=== PATIENT | male | born 1955 | race Caucasian/White ===

== ENCOUNTER 2019-01-30 22:36 | Inpatient (IN) | payer OTHER ==
[2019-01-30] MEDS ORDERED: SOD CHLORIDE 0.9% 1,000 ML IV (23:57)
[2019-01-31] MEDS ORDERED: ACETAMINOPHEN 650 MG SUPP PR
[2019-01-31] MEDS ORDERED: NACL 0.9% 3 ML SYG IV
[2019-01-31] MEDS ORDERED: ONDANSETRON 4 MG INJ IV
[2019-01-31] MEDS ORDERED: POTASSIUM CHLORIDE 40 MEQ in SOD CHLORIDE 0.9% 1,000 ML IV (01:30)
[2019-01-31] MEDS: LORAZEPAM 2 MG INJ IV ×4 (01:50→19:30)
[2019-01-31] MEDS: MULTIVITAMINS 10 ML, THIAMINE 100 MG, FOLIC ACID 1 MG in SOD CHLORIDE 0.9% 1,000 ML IVPB (01:51)
[2019-01-31] MEDS ORDERED: GLUCOSE GEL 15 GRAM TUBE BUCCAL (02:00)
[2019-01-31] MEDS ORDERED: DEXTROSE 50% 50 ML SYRINGE IV (02:00)
[2019-01-31] MEDS ORDERED: GLUCOSE GEL 15 GRAM TUBE PO ×2 (02:00)
[2019-01-31] MEDS ORDERED: GLUCAGON 1 MG INJ IM (02:00)
[2019-01-31] MEDS ORDERED: THIAMINE 200 MG INJ IV (02:00)
[2019-01-31] MEDS: ACCU-CHEK XX (02:49)
[2019-01-31] MEDS: THIAMINE 500 MG in SOD CHLORIDE 0.9% 100 ML IV ×2 (03:18→12:50)
[2019-01-31] MEDS: POTASSIUM CHLORIDE 100 ML IVPB ×2 (03:19→05:31)
[2019-01-31] MEDS: POTASSIUM CHLORIDE 40 MEQ in SOD CHLORIDE 0.9% 1,000 ML IV (03:19)
[2019-01-31] MEDS: INSULIN ASPART [NOVOLOG] 3 ML PEN SC ×5 (05:00→21:00)
[2019-01-31] MEDS ORDERED: VANCOMYCIN IV PER PHARMACY XX (05:30)
[2019-01-31] MEDS: PIPER-TAZO 3.375 GM IV (PMX) 100 ML IVPB ×4 (05:31→23:23)
[2019-01-31] MEDS: PANTOPRAZOLE 40 MG INJ IV (05:32)
[2019-01-31] MEDS: VANCOMYCIN 1 GM 250 ML IVPB (08:44)
[2019-01-31] MEDS: DILTIAZEM 25 MG INJ IV ×3 (15:28→22:22)
[2019-01-31] MEDS ORDERED: DILTIAZEM 25 MG INJ IV (16:30)
[2019-01-31] MEDS: CLONIDINE 0.2 MG/24 HR PATCH TRANSDERM (18:27)
[2019-01-31] MEDS: LACTATED RINGER'S 1,000 ML IV (19:20)
[2019-01-31] MEDS: ALBUTEROL/IPRATROPIUM (NEB) 3 ML AMP HHN (19:30)
[2019-01-31] MEDS: SOD CHLORIDE 0.9% 500 ML IV (21:02)
[2019-01-31] MEDS: VANCOMYCIN 750 MG (PMX) 250 ML IVPB (21:18)
[2019-01-31] MEDS ORDERED: ALBUTEROL/IPRATROPIUM (NEB) 3 ML AMP HHN (22:00)
[2019-01-31] MEDS: PROPOFOL 100 ML IV (22:23)
[2019-02-01] MEDS: THIAMINE 500 MG in SOD CHLORIDE 0.9% 100 ML IV (00:34)
[2019-02-01] MEDS: INSULIN ASPART [NOVOLOG] 3 ML PEN SC ×6 (01:00→21:00)
[2019-02-01] MEDS: PIPER-TAZO 3.375 GM IV (PMX) 100 ML IVPB ×3 (05:24→17:34)
[2019-02-01] MEDS: PANTOPRAZOLE 40 MG INJ IV (05:24)
[2019-02-01] MEDS: IPRATROPIUM (HFA) 12.9 GM INHALER INH ×3 (08:13→19:20)
[2019-02-01] MEDS: ALBUTEROL HFA 8 GM INHALER INH ×3 (08:14→19:20)
[2019-02-01] MEDS: VANCOMYCIN 750 MG (PMX) 250 ML IVPB ×2 (08:38→21:48)
[2019-02-01] MEDS ORDERED: ALBUTEROL HFA 8 GM INHALER INH (09:00)
[2019-02-01] MEDS ORDERED: IPRATROPIUM (HFA) 12.9 GM INHALER INH (09:00)
[2019-02-01] MEDS: PROPOFOL 100 ML IV ×2 (09:30→12:27)
[2019-02-01] MEDS: LORAZEPAM 2 MG INJ IV ×2 (12:17→14:07)
[2019-02-01] MEDS: morphine 2 MG INJ IV (12:49)
[2019-02-01] MEDS: SOD FERRIC GLUC COMPLX 125 MG in SOD CHLORIDE 0.9% 100 ML IVPB (13:13)
[2019-02-01] MEDS: SOD CHLORIDE 0.9% 500 ML IV (14:07)
[2019-02-01] MEDS: ACETAMINOPHEN 650MG/20.3ML CUP GTB (14:08)
[2019-02-01] MEDS: ENOXAPARIN 60 MG/0.6 ML SYG SC (15:20)
[2019-02-01] MEDS ORDERED: ASPIRIN 81 MG TAB GTB (20:00)
[2019-02-01] MEDS ORDERED: LORAZEPAM 2 MG INJ IV (20:00)
[2019-02-01] MEDS: metroNIDAZOLE 500 MG TAB NGT (21:16)
[2019-02-01] MEDS: LORAZEPAM 1 MG TAB PO (21:17)
[2019-02-01] MEDS: FENTAnyl (DRIP) 1000 mcg/100mL 100 ML IV (21:57)
[2019-02-02] MEDS: PIPER-TAZO 3.375 GM IV (PMX) 100 ML IVPB ×3 (00:28→12:10)
[2019-02-02] MEDS: LORAZEPAM 1 MG TAB PO ×2 (00:40→19:57)
[2019-02-02] MEDS: ACETAMINOPHEN 650MG/20.3ML CUP GTB ×3 (00:40→23:43)
[2019-02-02] MEDS: INSULIN ASPART [NOVOLOG] 3 ML PEN SC ×6 (00:49→21:00)
[2019-02-02] MEDS: metroNIDAZOLE 500 MG TAB NGT ×3 (06:08→21:05)
[2019-02-02] MEDS: PANTOPRAZOLE 40 MG INJ IV (06:08)
[2019-02-02] MEDS: ALBUTEROL HFA 8 GM INHALER INH ×3 (07:29→19:37)
[2019-02-02] MEDS: IPRATROPIUM (HFA) 12.9 GM INHALER INH ×3 (07:29→19:37)
[2019-02-02] MEDS ORDERED: MAGNESIUM SULFATE 3 GM in DEXTROSE 5% 100 ML IVPB (08:00)
[2019-02-02] MEDS: SOD CHLORIDE 0.9% 1,000 ML IV (08:21)
[2019-02-02] MEDS: PROPOFOL 100 ML IV ×2 (08:22→21:30)
[2019-02-02] MEDS: VANCOMYCIN 750 MG (PMX) 250 ML IVPB ×2 (09:40→21:05)
[2019-02-02] MEDS: POTASSIUM CHLORIDE 100 ML IVPB ×3 (09:44→14:43)
[2019-02-02] MEDS: THIAMINE 100 MG TAB GTB (09:59)
[2019-02-02] MEDS: MAGNESIUM SULFATE 1 GM/D5W 100 ML IVPB ×3 (13:10→15:58)
[2019-02-02] MEDS ORDERED: MAGNESIUM SULFATE 1 GM/D5W 100 ML (15:57)
[2019-02-02] MEDS ORDERED: ALBUMIN HUMAN 25% 100 ML IV (16:00)
[2019-02-02] MEDS: ALBUMIN HUMAN 25% 100 ML IV ×2 (16:41→23:43)
[2019-02-02] MEDS: SOD FERRIC GLUC COMPLX 125 MG in SOD CHLORIDE 0.9% 100 ML IVPB (17:13)
[2019-02-02] MEDS: METOPROLOL 5 MG INJ IV (21:05)
[2019-02-02] MEDS: MEROPENEM 1 GM/50ML(PMX) 50 ML IVPB (21:05)
[2019-02-02] MEDS: FENTAnyl (DRIP) 1000 mcg/100mL 100 ML IV (22:35)
[2019-02-02] MEDS: morphine 2 MG INJ IV (23:44)
[2019-02-03] MEDS: INSULIN ASPART [NOVOLOG] 3 ML PEN SC ×6 (01:00→21:00)
[2019-02-03] MEDS: NORepinephrine 8MG/250 ML (PMX 250 ML IV (03:37)
[2019-02-03] MEDS: metroNIDAZOLE 500 MG TAB NGT ×3 (05:53→23:24)
[2019-02-03] MEDS: PANTOPRAZOLE 40 MG INJ IV (05:53)
[2019-02-03] MEDS: MEROPENEM 1 GM/50ML(PMX) 50 ML IVPB ×3 (08:35→23:24)
[2019-02-03] MEDS: THIAMINE 100 MG TAB GTB (08:36)
[2019-02-03] MEDS: ALBUMIN HUMAN 25% 100 ML IV (08:36)
[2019-02-03] MEDS: PROPOFOL 100 ML IV ×2 (08:37→21:30)
[2019-02-03] MEDS: IPRATROPIUM (HFA) 12.9 GM INHALER INH ×3 (08:56→21:03)
[2019-02-03] MEDS: ALBUTEROL HFA 8 GM INHALER INH ×3 (08:57→21:02)
[2019-02-03] MEDS: VANCOMYCIN 750 MG (PMX) 250 ML IVPB ×2 (12:01→23:24)
[2019-02-03] MEDS: POTASSIUM CHLORIDE 100 ML IVPB ×3 (12:01→16:01)
[2019-02-03] MEDS ORDERED: PENDING SANTYL ORDER FOR WOUND CARE XX (12:30)
[2019-02-03] MEDS: SOD FERRIC GLUC COMPLX 125 MG in SOD CHLORIDE 0.9% 100 ML IVPB (14:05)
[2019-02-03] MEDS: FLUCONAZOLE 100 MG/50 ML 50 ML IVPB (14:09)
[2019-02-03] MEDS: SOD CHLORIDE 0.9% 100 ML (18:25)
[2019-02-03] MEDS: IOHEXOL 300MG/ML 150 ML BTL (18:25)
[2019-02-03] MEDS: IOHEXOL 300MG/ML 30 ML BTL ×2 (18:25)
[2019-02-03] MEDS: FENTAnyl (DRIP) 1000 mcg/100mL 100 ML IV (19:16)
[2019-02-03] MEDS: BALSAM PERU/CASTOR OIL 60 GM TUBE TOP (21:26)
[2019-02-03] MEDS: DEXTROSE 50% 50 ML SYRINGE IV (21:26)
[2019-02-04] MEDS: INSULIN ASPART [NOVOLOG] 3 ML PEN SC ×6 (00:59→20:40)
[2019-02-04] MEDS: DEXTROSE 50% 50 ML SYRINGE IV ×2 (05:12→08:47)
[2019-02-04] MEDS: PANTOPRAZOLE 40 MG INJ IV (05:13)
[2019-02-04] MEDS: MEROPENEM 1 GM/50ML(PMX) 50 ML IVPB ×3 (05:13→22:19)
[2019-02-04] MEDS: metroNIDAZOLE 500 MG TAB NGT (05:13)
[2019-02-04] MEDS: IPRATROPIUM (HFA) 12.9 GM INHALER INH ×3 (08:11→19:40)
[2019-02-04] MEDS: ALBUTEROL HFA 8 GM INHALER INH ×3 (08:12→19:40)
[2019-02-04] MEDS: BALSAM PERU/CASTOR OIL 60 GM TUBE TOP (08:47)
[2019-02-04] MEDS: THIAMINE 100 MG TAB GTB (08:48)
[2019-02-04] MEDS: PROPOFOL 100 ML IV ×2 (08:48→21:30)
[2019-02-04] MEDS: ASCORBIC ACID 500 MG TAB NGT (10:06)
[2019-02-04] MEDS: ZINC SULFATE 220 MG CAP NGT (10:06)
[2019-02-04] MEDS: VANCOMYCIN 750 MG (PMX) 250 ML IVPB ×2 (10:06→22:00)
[2019-02-04] MEDS: FENTAnyl (DRIP) 1000 mcg/100mL 100 ML IV (11:22)
[2019-02-04] MEDS: FLUCONAZOLE 100 MG/50 ML 50 ML IVPB (13:05)
[2019-02-04] MEDS: DEXTROSE 5%-0.45% NACL 1,000 ML IV (22:33)
[2019-02-05] MEDS: INSULIN ASPART [NOVOLOG] 3 ML PEN SC ×2 (00:09→05:00)
[2019-02-05] MEDS: MEROPENEM 1 GM/50ML(PMX) 50 ML IVPB (05:25)
[2019-02-05] MEDS: PANTOPRAZOLE 40 MG INJ IV (05:25)
[2019-02-05] MEDS: FENTAnyl (DRIP) 1000 mcg/100mL 100 ML IV (05:48)
[2019-02-05] MEDS: ALBUTEROL HFA 8 GM INHALER INH (08:32)
[2019-02-05] MEDS: IPRATROPIUM (HFA) 12.9 GM INHALER INH (08:32)
[2019-02-05] MEDS ORDERED: VANCOMYCIN 1 GM 250 ML IVPB (10:00)
[2019-02-05] MEDS: morphine (DRIP) 100 MG/100 ML 100 ML IV (12:25)
== END 2019-02-05 18:23 | disposition expired | DRG 870 ==
LOC: TEL 22:36 → ICU 01-31 20:22
PROC: 5A1955Z Respiratory Ventilation, Greater than 96 Consecutive Hours (ICD-10-PCS; principal; 2019-01-31)
PROC: 0BH18EZ Insertion of Endotracheal Airway into Trachea, Via Natural or Artificial Opening Endoscopic (ICD-10-PCS; 2019-01-31)
PROC: 30233N1 Transfusion of Nonautologous Red Blood Cells into Peripheral Vein, Percutaneous Approach (ICD-10-PCS; 2019-02-02)
DX: A41.9 Sepsis, unspecified organism (principal); J69.0 Pneumonitis due to inhalation of food and vomit; I21.A1 Myocardial infarction type 2; R65.21 Severe sepsis with septic shock; I63.232 Cerebral infarction due to unspecified occlusion or stenosis of left carotid arteries; J96.01 Acute respiratory failure with hypoxia; F10.239 Alcohol dependence with withdrawal, unspecified; Z68.1 Body mass index [BMI] 19.9 or less, adult; E22.2 Syndrome of inappropriate secretion of antidiuretic hormone; E46 Unspecified protein-calorie malnutrition; G93.40 Encephalopathy, unspecified; J90 Pleural effusion, not elsewhere classified; C77.0 Secondary and unspecified malignant neoplasm of lymph nodes of head, face and neck; E87.2 Acidosis; C14.0 Malignant neoplasm of pharynx, unspecified; D64.9 Anemia, unspecified; D53.1 Other megaloblastic anemias, not elsewhere classified; D63.0 Anemia in neoplastic disease; E87.6 Hypokalemia; E03.9 Hypothyroidism, unspecified; F17.200 Nicotine dependence, unspecified, uncomplicated; I87.2 Venous insufficiency (chronic) (peripheral); J43.9 Emphysema, unspecified; R62.7 Adult failure to thrive; R13.10 Dysphagia, unspecified; Z66 Do not resuscitate; Z59.0 Homelessness; Z79.02 Long term (current) use of antithrombotics/antiplatelets
CPT/HCPCS: 31500; 36430; 36600; 70491; 70551; 71045; 71260; 74177; 76536; 80048; 80053; 80061; 80202; 80307; 81001; 82270; 82607; 82728; 82746; 82803; 82962; 83036; 83540; 83605; 83735; 84100; 84145; 84443; 84484; 85014; 85018; 85025; 85335; 85384; 85610; 85651; 85730; 86140; 86704; 86706; 86708; 86709; 86803; 86850; 86900; 86901; 86920; 87040-91; 87070; 87075; 87081; 87086; 87340; 92950; 93005; 93306; 93970; 94003; 94640; 94770